=== PATIENT | female | born 1950 | race Caucasian/White ===

== ENCOUNTER → 2016-11-23 | Outpatient (CLI) | payer OTHER, MEDICARE | LOC: FIMAGING 15:11 | DX: Z12.31 Encounter for screening mammogram for malignant neoplasm of breast (principal) | CPT/HCPCS: G0202 ==

== ENCOUNTER 2016-11-28 18:42 | Emergency (ER) | payer OTHER, MEDICARE ==
[2016-11-28 18:48] VITALS: BP 109/71; PULSE 91; RESP 16; TEMP 98.2; O2SAT 95
--- NOTE | 2016-11-28 19:54 | UCPHY ---
H & P Time Seen by Provider: 11/28/16 19:37 Patient Type: New HPI/ROS: This patient complains of right leg pain that is intermittent but worse at night. This is been causing some difficulty with sleep recently. She does have restless leg syndrome and is not taking any specific medications for this. However she feels that she has developed an ache to the right leg that is a little different than her typical symptoms with restless leg. She has had a long history of restless sleep and insomnia has tried various medications with no recent changes in that pattern. The symptoms have increased in leg over the past 2 days. She spoke with her daughter who is a RN who suggested she come in to rule out DVT. The patient notes no exacerbating factors for the symptoms reports the current intensity of the leg pain is mild. ROS: No fevers or chills. HEENT: No complaints pulmonary: No complaints including no pleuritic chest pain or shortness of breath. Cardiovascular: No lightheadedness or heart palpitations. No chest pain. No pallor discoloration to low leg. No claudication symptoms. Integumentary: No skin rash associated with this. Musculoskeletal: No recent trauma. 7 point ROS is otherwise negative. Past Medical/Surgical History: Otherwise healthy except for restless leg syndrome. Social History: No recent foreign travel or prolonged immobilization. Patient is quite active exercises regularly. She takes been classes and walks regularly. She is a nonsmoker. Rare alcohol. No drug use. Smoking Status: Never smoked Physical Exam: Physical Exam Vital signs are normal. General: No acute distress Eyes: Pupils equal and react to light. Extraocular motions are intact. Lungs: No respiratory distress. Cardiac: Brisk capillary refill is intact throughout. Pulses are 2+ and symmetric in the affected extremity. Extremities: Atraumatic normal except for right leg Right leg: Mild calf tenderness with no swelling. Homans is negative. Skin: No rash or pallor. Neuro: Alert with no sensorimotor deficits in the affected extremity. Initial differential diagnosis: Tenderness from restless leg syndrome, calf strain, DVT Constitutional: Initial Vital Signs Temperature (C) 36.8 C 11/28/16 18:46 Heart Rate 91 11/28/16 18:46 Respiratory Rate 16 11/28/16 18:46 Blood Pressure 109/71 11/28/16 18:46 O2 Sat (%) 95 11/28/16 18:46 O2 Delivery Mode Room Air Allergies/Adverse Reactions: No Known Allergies Allergy (Unverified 08/05/09 14:10) Home Medications: Medication Instructions Recorded NK [No Known Home Meds] 11/28/16 MDM/Departure - MDM Imaging: Discussed imaging studies w/ scallop cutter machine Radiologist ED Course/Re-evaluation: I discussed the patient's leg pain with her. We ruled out DVT. No concerning findings today. - Depart Disposition: Home, Routine, Self-Care Clinical Impression: Leg pain Qualifiers: Laterality: right Qualified Code(s): M79.604 - Pain in right leg Condition: Good Instructions: Restless Legs Syndrome (ED), Leg Pain (ED) Additional Instructions: Diagnosis: Leg pain Because her symptoms are unclear. He may have intermittent sciatica or this may be attributable to her low restless leg syndrome. Plan: Plan: Ibuprofen 400-600 mg per 6 hours regularly on occasion if needed. Tylenol in addition if needed. Starts daily stretches prior to taking muscle relaxants and Vicodin in the morning. 3-5 minutes each of: "Butterfly stretch," "Sphinx stretch", hip stretch, and hamstring stretch. Avoid lifting more than 5-10 pounds until symptoms improve. Call your primary care physician for a followup appointment in 3-7 days. Go to the emergency department for worsening of your symptoms despite the treatment plan. Referrals: Albina Mayfield MD [Primary Care Provider] - As per Instructions - PQRS PQRS Measurement: 134: Depression screening and followup, PRIME MD-PHQ2 (12 years and older) Over the last 2 weeks, how often have you been bothered by any of the following problems? 1. Feeling down, depressed, or hopeless? 2. Little interest or pleasure in doing things? Patient answered no to both 1 and 2 130: Documentation of medications. Reviewed all patient medications, doses, route and frequency. 226: Do you smoke? [No.] 47: 65 and older: Advanced care planning. Patient designates surrogate decision maker as her daughter Pam Lewis 51: 18 years old and older with diagnosis of COPD, spirometry performance. NA 52: 18 years old and older with COPD and symptoms of COPD or FEV1<60% predicted prescribed a B Agonist. NA
== END 2016-11-28 20:00 | disposition home or self-care (01) ==
LOC: CED 18:42
DX: M79.604 Pain in right leg (principal)
CPT/HCPCS: 93971; G0463; 99203-PO

== ENCOUNTER → 2017-03-30 | Outpatient (CLI) | payer OTHER, MEDICARE | LOC: BMCIMAGING 08:49 | PROVIDERS: ATTEND Family Medicine | DX: R05 Cough (principal) ==

== ENCOUNTER → 2018-05-03 | Outpatient (CLI) | payer OTHER, MEDICARE | LOC: FIMAGING 11:38 | PROVIDERS: ATTEND Family Medicine | DX: Z12.31 Encounter for screening mammogram for malignant neoplasm of breast (principal) ==

== ENCOUNTER → 2018-06-03 | Outpatient (CLI) | payer OTHER, MEDICARE | LOC: FIMAGING 09:28 | PROVIDERS: ATTEND Family Medicine | DX: Z13.820 Encounter for screening for osteoporosis (principal); Z78.0 Asymptomatic menopausal state | CPT/HCPCS: 82947-QW ==

== ENCOUNTER → 2019-01-16 | Outpatient (CLI) | payer OTHER, MEDICARE | LOC: FIMAGING 09:24 ==